=== PATIENT | female | born 2000 ===

== ENCOUNTER 2024-11-26 11:18 | Outpatient (CLI) | payer OTHER | END 2024-11-26 11:20 | disposition home or self-care (01) | LOC: PRENATAL 11:18 | PROVIDERS: ATTEND Obstetrics & Gynecology Maternal & Fetal Medicine | DX: O44.00 Complete placenta previa NOS or without hemorrhage, unspecified trimester (principal); Z3A.21 21 weeks gestation of pregnancy ==

== ENCOUNTER → 2025-02-15 13:23 | Outpatient (CLI) | payer OTHER | END | disposition home or self-care (01) | LOC: PRENATAL 13:23 | PROVIDERS: ATTEND Obstetrics & Gynecology Maternal & Fetal Medicine | DX: O26.843 Uterine size-date discrepancy, third trimester (principal); O36.8130 Decreased fetal movements, third trimester, not applicable or unspecified; Z3A.34 34 weeks gestation of pregnancy ==

== ENCOUNTER 2025-03-02 13:31 | Outpatient (CLI) | payer OTHER ==
[~2025-03-02] VITALS: Ht 160 cm; Wt 94.3 kg
[2025-03-02 13:13] VITALS: BP 124/65
[2025-03-02 13:57] LABS: BASO % 0.2 % (0.1-1.2); EOS # 0.02 (0.04-0.54); EOS % 0.2 % (0.7-7.0); LYMPH # 1.43 (1.18-3.74); LYMPH % 15.9 % (19.3-53.1); MEAN PLATELET VOLUME 12.90 fl (9.4-12.4); MONO # 0.65 (0.24-0.82); MONO % 7.2 % (4.7-12.5); NEUT # 6.82 (1.56-6.13); NEUT % 76.1 % (34.0-71.1); RED CELL DISTRIBUTION WIDTH 12.6 % (11.6-14.4)
[2025-03-02 14:02] LABS: URINE APPEARANCE Cloudy; URINE BILIRRUBIN Negative (NEGATIVE); URINE BLOOD Negative; URINE COLOR Dark Yellow; URINE KETONE Trace (NEGATIVE); URINE LEUKOCYTE Small; URINE NITRATE Negative; URINE PROTEIN Trace (NEGATIVE); URINE UROBILINOGEN 1.0 E.U./dl
[2025-03-02 14:07] LABS: URINE EPITHELIAL CELLS 97.9 uL (0.0-38.8); URINE RBC 10.1 uL (0.0-20.8); URINE WBC 159.6 uL (0.0-23.2)
[2025-03-02 14:50] LABS: URINE CAST 1.27 uL (0.0-1.40); URINE GLUCOSE 100 MG/DL (NEGATIVE)
[2025-03-02 15:11] VITALS: BP 105/53
[2025-03-02] MEDS ORDERED: TERCONAZOLE45 GM VAG (17:53)
[2025-03-02 18:21] VITALS: BP 105/53
== END 2025-03-02 18:21 | disposition home or self-care (01) ==
LOC: OBS/DEL 13:31
PROVIDERS: ATTEND Obstetrics & Gynecology
DX: O98.813 Other maternal infectious and parasitic diseases complicating pregnancy, third trimester (principal); Z3A.34 34 weeks gestation of pregnancy